=== PATIENT | male | born 1975 | race Caucasian/White ===

== ENCOUNTER 2024-04-27 21:23 | Emergency (ER) | payer SELFPAY ==
[2024-04-27] MEDS ORDERED: Ondansetron ODT 4 MG TAB ONE (21:48)
[2024-04-27] MEDS ORDERED: Ibuprofen 800 MG TAB ONE (22:41)
== END 2024-04-28 00:45 | disposition home or self-care (01) ==
LOC: NAV ERS 21:23
DX: B34.9 Viral infection, unspecified (principal); E86.0 Dehydration
CPT/HCPCS: 87428; 99284; Q0162